=== PATIENT | female | born 1960 | race Caucasian/White ===

== ENCOUNTER 2017-02-27 06:28 | Day surgery (SDC) | payer OTHER ==
[2017-02-25 16:37] LABS: BASOPHILS 0.6 %; BASOPHILS ABSOLUTE 0.04 10/3/uL (0.0-0.16); EOSINOPHILS 3.8 %; EOSINOPHILS ABSOLUTE 0.27 10/3/uL (0.0-0.53); HEMATOCRIT 37.9 % (36.0-48.0); HEMOGLOBIN 12.5 g/dL (12.0-16.0); IMMATURE GRANULOCYTES 0.1 %; IMMATURE GRANULOCYTES ABSOLUTE 0.01 10/3/uL (0.0-0.11); LYMPHOCYTES 38.4 %; LYMPHOCYTES ABSOLUTE 2.72 10/3/uL (0.67-4.30); MEAN CORPUSCULAR HEMOGLOB 28.5 pg (26.0-34.0); MEAN CORPUSCULAR VOLUME 86.5 fL (80-100); MEAN PLATELET VOLUME 9.5 fL (9.2-13.0); MONOCYTES 6.1 %; MONOCYTES ABSOLUTE 0.43 10/3/uL (0.21-1.20); NEUTROPHILS ABSOLUTE 3.61 10/3/uL (2.02-8.40); PLATELET COUNT 288 10/3/uL (150-400); RBC DISTRIBUTION WIDTH 14.5 % (12.0-16.0); RED CELL COUNT 4.38 10/6/uL (4.0-5.6); WHITE BLOOD CELLS 7.1 10/3/uL (4.5-10.5)
[2017-02-25 16:38] LABS: MANUAL DIFF NO %
[2017-02-25 16:58] LABS: PFA (COL/EPI) 76 SEC (72-180)
[2017-02-25 17:13] LABS: PARTIAL THROMBO TIME 25.3 SEC (22.5-37.2); PROTIME (NOT ORD) 12.9 SEC (12.0-14.5)
--- NOTE | ~2017-02-27 | OP ---
Record Of Operation [facility] [address] [place]. 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 PROCEDURE: Capsulotomy re-reconstruction, right, with 620 MH implant, and nipple reconstruction. INDICATIONS AND FINDINGS OF THE PROCEDURE: This 56-year-old female has undergone a complex reconstruction which included both an immediate mastectomy reconstruction with Passot technique, and a contralateral lat dorsi for a delayed reconstruction. She has now gone through her second stage and has a malpositioned right 620 MH implant. She is appropriate for aggressive inframammary crease, lowering and capsulotomy, re-reconstruction and nipple reconstruction. DETAILS OF THE PROCEDURE: The patient was brought to the operating room and after being marked in the preoperative holding area, she was prepped and draped in the usual sterile fashion for the above-described procedure. Ropivacaine solution was then injected into her right inframammary crease incision, and dissection was carried down to the level of the former implant. The implant was removed. Then under direct lighted retractor, the capsule and the inferior portion of the breast reconstruction and extending up to about 10 o'clock was incised circumferentially. This allowed for a direct lowering of the inframammary crease. Multiple radial and checkerboard incisions were then made in the inferior capsule to expand the inferior pole of the breast. This area was then checked for hemostasis, packed with Hibiclens soaked gauzes, and an inferior drain was placed. Satisfied with the expansion of the lower pole, then a new 620 MH implant was prepped on the back table placed into the site over the drain. She was then closed on the deep layer with 3-0 Vicryl and then with multiple layers of Monocryl through to an intracuticular in the skin. Drain was set to suction. Our attention was turned to nipple reconstruction. First on the right, incision was made, dissection was carried down to the level of the underlying fat, a Dinora pattern was used. Two fatty tab flaps were elevated. Hemostasis was obtained at the donor sites. The donor sites were closed with 3-0 Monocryl. The fatty tab flaps were brought into opposition with 3-0 Monocryl. The skin was then closed where necessary with 5-0 fast- absorbing gut. Contralaterally, a similar procedure was carried out at one of the limbs from the lat dorsi skin paddle. Again, the two fatty tab flaps were elevated. Hemostasis was obtained at the donor sites, and the donor sites were closed with 3-0 Monocryl. The fatty tab flaps were brought into opposition with 3-0 Monocryl and the skin was then closed where necessary with 5-0 fast-absorbing gut. She was cleansed with peroxide. Dry dressings and nipple shield were placed, and she was remanded to the recovery room in stable condition with all sponge and needle counts correct. Record Of Operation [address] [address] NAME: MARYANA PRESTON : 58 STATUS : REG [facility] PAT#: [id number] AGE: 56 ADM/REG DATE : 02/27/17 MR#: [id number] REPORT SERV DATE: 02/27/17 DICTATED BY: MARICRUZ GRAY DATE: 02/27/17 REPORT STATUS : Draft TRANSCRIBED BY: AGA DATE: 02/27/17 BRANDON/AGA Maricruz Gray M.D. / [id number] CC: Radha Dooley D.O.
[~2017-02-27 06:28] MED LIST: ACIPHEX PO; ADVIL PO; ALEVE220 MG PO; AT25 PO; K500 PO; MOMUD PO; MULTIVITAMI1 PO; NEUR300 PO; NOLV10 PO; PERCOCET1 TA2 PO; SYN125 PO; [UNRECOGNIZED DRUG - OTHER] PO
== END 2017-02-27 16:02 | disposition home or self-care (01) ==
LOC: SDC 06:28
PROVIDERS: Surgery Surgery of the Hand
PROC: 0HPT0JZ Removal of Synthetic Substitute from Right Breast, Open Approach (ICD-10-PCS; 2017-02-27)
PROC: 0HRT0JZ Replacement of Right Breast with Synthetic Substitute, Open Approach (ICD-10-PCS; 2017-02-27)
PROC: 0HRW07Z Replacement of Right Nipple with Autologous Tissue Substitute, Open Approach (ICD-10-PCS; principal; 2017-02-27 07:45)
DX: T85.44XA Capsular contracture of breast implant, initial encounter (principal); G47.33 Obstructive sleep apnea (adult) (pediatric); K21.9 Gastro-esophageal reflux disease without esophagitis; E03.9 Hypothyroidism, unspecified; Z88.5 Allergy status to narcotic agent; Z79.899 Other long term (current) drug therapy; Z90.49 Acquired absence of other specified parts of digestive tract; Z90.710 Acquired absence of both cervix and uterus; Z98.890 Other specified postprocedural states
CPT/HCPCS: 85025; 85576; 85610; 85730; 93005; A9270-GY; C1769; C1789; J0690; J1885; J2250; J2405; J2795; J3010